=== PATIENT | male | born 1960 | race Caucasian/White ===

== ENCOUNTER → 2023-11-02 10:21 | Outpatient (REF) | payer OTHER, SELFPAY ==
[2023-11-02 11:35] LABS: % Basophils 0.5 % (0-2); % Eosinophils 4.1 % (0-6); % Lymphocytes 16.2 % (20.5-51.1); % Monocytes 10.7 % (1.7-9.3); % Neutrophils 67.5 % (42.2-75.2); Absolute Basophils 0.1 10^3/uL (0-0.2); Absolute Eosinophils 0.4 10^3/uL (0-0.7); Absolute Immature Granulocytes 0.1 10^3/uL (0-0.05); Absolute Lymphocytes 1.5 10^3/uL (1.2-3.4); Absolute Neutrophils 6.2 10^3/uL (1.4-6.5); Hematocrit 42.2 % (39.0-52.0); Hemoglobin 14.7 g/dL (13.0-18.0); Mean Corp Hgb Conc. 34.8 g/dL (33.0-37.0); Mean Corpuscular Hgb 28.8 pg (27.0-31.0); Mean Corpuscular Volume 82.6 fL (80.0-94.0); Mean Platelet Volume 8.7 fL (7.4-10.4); Nucleated Red Blood Cells % 0 % (-); Platelet Count 337 10^3/uL (130-400); Red Blood Cell Count 5.11 10^6/uL (4.70-6.10); White Blood Cell Count 9.1 10^3/uL (4.8-10.8)
[2023-11-02 11:46] LABS: D-Dimer 0.96 ug/mlFEU (0.00-0.50)
[2023-11-02 12:04] LABS: ALT (SGPT) 21 U/L (0-50); AST (SGOT) 16 U/L (17-59); Albumin 3.8 g/dl (3.5-5.0); Alkaline Phosphatase 79 U/L (38-126); Blood Urea Nitrogen 24 mg/dl (9-20); Calcium 9.3 mg/dl (8.4-10.2); Carbon Dioxide 33 mmol/L (22-30); Chloride 93 mmol/L (98-107); Glucose 176 mg/dl (70-99); Potassium 4.5 mmol/L (3.5-5.1); Sodium 135 mmol/L (135-145); Total Bilirubin 0.9 mg/dl (0.2-1.3); Total Protein 6.4 g/dl (6.3-8.2); eGFR > 60.00
== END ==
LOC: HWLAB 10:21
PROVIDERS: ATTENDING PHYSICIAN Nurse Practitioner Family
DX: R06.09 Other forms of dyspnea (principal); N23 Unspecified renal colic
CPT/HCPCS: 36415; 71046; 74018; 80053; 85025; 85379

== ENCOUNTER 2023-11-02 14:30 | Emergency (ER) | payer OTHER, SELFPAY ==
[2023-11-02 14:38] VITALS: BP 136/100
[2023-11-02] MEDS: NSS 1000 IV (15:31)
[2023-11-02 17:45] VITALS: BP 140/84
--- NOTE | 2023-11-02 18:11 | ED.GENMED ---
History of Present Illness
General
Chief Complaint: Abnormal Lab Value
Source: patient
Exam Limitations: none
Time Seen by Provider: 11/02/23 17:44
Travel History
Have you had any contact with someone who has COVID-19?: No
Do you have any symptoms of coronavirus? Fever > 100 degrees, chills, cough, shortness of breath, sore throat, loss of taste or smell, muscle aches, or headache?: No
History of Present Illness
History of Present Illness:
63 year old male presents with right flank pain. Last 5 days he has been having flulike symptoms with fatigue sweats and chills and a minimal cough. He has a history of lung cancer. He has a history of pneumonia. He has a solitary right kidney.
He states yesterday morning woke up with right flank pain that was sudden sharp in nature and was intermittent. He was seen by the family doctor yesterday who did a urinalysis chest x-ray abdominal x-ray and a D-dimer. His D-dimer was elevated and
he was told to come here for evaluation for pulmonary embolism. He notes no more shortness of breath than usual.
No other complaints at this time
Past History
Past History
ED Past Medical History: HTN, Hypercholesterolemia and Other
ED Past Surgical History: Urological (Prostatectomy) and Other (Left nephrectomy)
Social History
Tobacco: Non-smoker
Alcohol: Occasional
Drug: None
Living: with family
Phy Exam
Physical Exam
Physical Exam:
General: Well-appearing male no acute respiratory distress
HEENT: Normocephalic atraumatic
Heart: Regular rate and rhythm no murmurs
Lungs: Slightly rhonchorous no Rales
Abdomen is soft nontender nondistended no guarding rebound normal bowel sounds no significant costovertebral angle tenderness
Extremities: No cyanosis or edema
Skin: Warm no rash or lesion
Course
Orders/Labs/Results
Orders:
Orders
11/02/23 14:36
EKG [Electrocardiogram (*1)] Urgent
Reason for Study: Bradycardia / Tachycardia
11/02/23 14:37
EKG- Treatment ONCE
11/02/23 14:48
Influenza A+B Rapid Molecular Urgent
NIDIA Source: Nasal Swab
Specimen Description:
11/02/23 15:20
0.9% Sodium Chloride 1000 ml [Nss] 1,000 ml IV BOLUS
11/02/23 15:21
CT Chest Pe Study Urgent
Comment:
Reason For Exam: short of breath, elevated ddimer
11/02/23 18:08
CT Abd/pel Without Iv Or Oral Urgent
Comment:
Reason For Exam: right flank pain
11/02/23 14:36
11/02/23 14:36
Vital Signs
Initial and Last Documented VS:
Initial Vital Signs
Temp Pulse Resp BP Pulse Ox
98.8 F 110 18 136/100 95
11/02/23 14:38 11/02/23 14:38 11/02/23 14:38 11/02/23 14:38 11/02/23 14:38
Last Documented Vital Signs
Temp Pulse Resp BP Pulse Ox
98.8 F 86 16 140/84 97
11/02/23 14:38 11/02/23 17:45 11/02/23 17:45 11/02/23 17:45 11/02/23 17:45
MDM/Problems Addressed
Differential Diagnosis Includes:
Elevated D-dimer as outpatient sent in for PE study. Patient does have a solitary kidney. He was hydrated here and PE study was performed which was negative for PE. Shows improved consolidation right upper lobe and stable pericardial effusion.
Patient describes sudden onset flank pain as well. Am told he had trace hematuria the family doctor office. His only remaining kidney is on the right side which is where his pain is. Will order CT of the abdomen and pelvis to evaluate for
potential kidney stone. Outpatient COVID and flu test were negative
*Critical Care Note
Total Time (30-74mins, 75-104mins- exclusive of procedures): Not Applicable
Update Note
Update Note:
CT of the abdomen pelvis negative for acute intra-abdominal process. Patient reassured. No evidence of pulmonary embolism here. Findings on CAT scan today are improved from prior. Stable for discharge
ED Attending Note
-
Portions of this chart may have been created with voice recognition software.� Occasional wrong word or��sound alike� substitutions may have occurred due to the inherent limitations of voice recognition software.
Discharge Plan
Departure
Patient Disposition: Home (Routine Discharge)
Date of Disposition: 11/02/23
Time of Disposition: 21:23
Patient with high blood pressure during this ER visit?: No
Discharge Problem:
Acute flank pain
Prescriptions:
No Action
atorvastatin 10 MG tablet
10 mg PO QPM
irbesartan 150 MG tablet
150 mg PO DAILY
fluticasone propionate 1 SPRAY spray,suspension
1 spray intranasal DAILY
levalbuterol tartrate 1 PUFF HFA aerosol inhaler
1 puff inhalation R [id number] PRN (Reason: sob)
budesonide-formoterol [Symbicort] 1 PUFF HFA aerosol inhaler
2 puff inhalation R BID
amlodipine 10 MG tablet
10 mg PO DAILY
doxycycline hyclate 100 MG capsule
100 mg PO BID 5 Days Qty: 10 0RF
Referrals:
Theo Hui CRNP [Family Provider] -
Activity Restrictions/Additional Instructions:
Continue current medication. Please return here for worsening symptoms otherwise follow-up with your family
== END 2023-11-02 21:59 | disposition home or self-care (01) ==
LOC: EMR 14:30
PROVIDERS: EMERGENCY PHYSICIAN Emergency Medicine; FAMILY PHYSICIAN Nurse Practitioner Family
DX: R10.9 Unspecified abdominal pain (principal); R79.89 Other specified abnormal findings of blood chemistry; R68.83 Chills (without fever); R05.9 Cough, unspecified; R31.9 Hematuria, unspecified; R53.83 Other fatigue; Z85.118 Personal history of other malignant neoplasm of bronchus and lung
CPT/HCPCS: 99285; 96360; 36415; 71046; 71275; 74018; 74176; 80053; 85025; 85379; 87502; 93005; Q9967

== ENCOUNTER → 2024-02-23 08:42 | Outpatient (REF) | payer OTHER, SELFPAY | LOC: RSP 08:42 | PROVIDERS: FAMILY PHYSICIAN Nurse Practitioner Family | DX: J70.0 Acute pulmonary manifestations due to radiation (principal) | CPT/HCPCS: 94727; 94729; 88738; 94010 ==

== ENCOUNTER → 2024-09-03 16:31 | Outpatient (REF) | payer OTHER, SELFPAY | LOC: HWRAD 16:31 | PROVIDERS: ATTENDING PHYSICIAN Nurse Practitioner Family | DX: R05.9 Cough, unspecified (principal); R06.09 Other forms of dyspnea | CPT/HCPCS: 71046 ==

== ENCOUNTER → 2024-10-12 08:50 | Outpatient (REF) | payer OTHER, SELFPAY | LOC: HWRAD 08:50 | PROVIDERS: ATTENDING PHYSICIAN Nurse Practitioner Family | DX: M25.511 Pain in right shoulder (principal) | CPT/HCPCS: 73030 ==